=== PATIENT | female | born 1950 | race Asian ===

== ENCOUNTER → 2021-06-22 | Outpatient (CLI) | payer MEDICARE ==
--- NOTE | 2021-06-22 15:11 | RAD ---
AP and Lateral Views of the Chest 06/22/2021 1:52 PM Indication: Reason: COUGH / Spl. Instructions: / History: Comparison: Chest radiograph March 25, 2014 Findings: There is no focal consolidation or infiltrate identified. The cardiomediastinal silhouette is within normal limits. There is no evidence of pneumothorax or pleural effusion. No acute osseous a bnormalities are identified. Impression: No evidence of acute cardiopulmonary process. Electronically signed by: Chris Ignacio MD (06/22/2021 3:08 PM) [id number]
== END ==
LOC: RAD 13:38
PROVIDERS: ATTEND Family Medicine
DX: R05.9 Cough, unspecified (principal)
CPT/HCPCS: 71046